=== PATIENT | female | born 1945 | race Caucasian/White ===

== ENCOUNTER 2022-08-24 04:14 | Emergency (ER) | payer OTHER ==
[~2022-08-24] VITALS: Ht 142.2 cm; Wt 56.2 kg
--- NOTE | 2022-08-24 04:24 | NUR ---
Placed in room 7 . Placed on screwhead polisher, blood pressure machine and pulse oximeter. To gown for exam. Side rails up. Report given to ISATU BOOKER.
[2022-08-24 04:26] VITALS: BP_SYST 156
--- NOTE | 2022-08-24 04:33 | NUR ---
ER at bedside examining patient.
--- NOTE | 2022-08-24 04:33 | NUR ---
PT BIB DAUGHTER FROM HOME, ASSISTED TO BED 7 VIA WHEELCHAIR. PT A&Ox4, ABLE TO MAKE NEEDS KNOWN. PT IS A [employer], DAUGHTER AT BEDSIDE TO TRANSLATE. PT C/O SOB SINCE LAST NIGHT. PT DENIES CHEST PAIN, N/V/D, FEVER, AND CHILLS. PT RECENTLY DISCHARGED FROM [facility] ON 08/18/2022. PT HAS HISTORY OF BLOOD CLOTS, STAGE 4 BREAST CANCER, HTN, AND DM. PLUERAL DRAINAGE NOTED ON RIGHT SIDE. SAFETY PRECAUTIONS IN PLACE.
[2022-08-24 05:07] LABS: BASOPHILS # (AUTO) 0.2 K/uL (0.0-0.2); BASOPHILS % (AUTO) 1.1 % (0.0-2.0); EOSINOPHILS % (AUTO) 0.4 % (0.0-4.0); HEMATOCRIT 30.9 % (36-48); HEMOGLOBIN 10.1 g/dL (12.0-16.0); LYMPHOCYTES # (AUTO) 2.2 K/uL (1.0-5.5); LYMPHOCYTES % (AUTO) 16.5 % (20.5-51.5); MEAN CORPUSCULAR HEMOGLOBIN 28 pg (27-31); MEAN CORPUSCULAR HGB CONC 33 % (32-36); MEAN CORPUSCULAR VOLUME 85 fL (79.0-98.0); MONOCYTES # (AUTO) 0.7 K/uL (0.0-1.0); MONOCYTES % (AUTO) 5.3 % (1.7-9.3); NEUTROPHILS # (AUTO) 10.3 K/uL (1.8-7.7); NEUTROPHILS % (AUTO) 76.7 % (40.0-70.0); PLATELET COUNT (AUTO) 360 K/uL (130-430); RED BLOOD CELL COUNT(AUTO) 3.65 MIL/uL (4.2-6.2); RED CELL DISTRIBUTION WIDTH 17.1 % (9.0-15.0); WHITE BLOOD COUNT (AUTO) 13.4 K/uL (4.8-10.8)
[2022-08-24 05:31] LABS: ANION GAP 7 (5-15); CALCIUM 8.1 mg/dL (8.4-11.0); CHLORIDE 99 mmol/L (98-107); CREATININE 0.71 mg/dL (0.55-1.30); GLUCOSE 186 mg/dL (70-99); UREA NITROGEN, BLOOD 10 mg/dL (8-21)
[2022-08-24 05:37] LABS: ALANINE AMINOTRANSFERASE 9 U/L (12-78); ALBUMIN 2.3 g/dL (3.4-4.8); ASPARTATE AMINOTRANSFERASE 12 U/L (10-37); TOTAL BILIRUBIN 0.5 mg/dL (0.0-1.0)
--- NOTE | 2022-08-24 06:16 | NUR ---
Pt resting, awake with daughter at bedside, no s/s of discomfort noted.
[2022-08-24] MEDS ORDERED: LEVO250T73 PO ×2 (07:11→07:22)
[2022-08-24 07:34] VITALS: BP_SYST 125
--- NOTE | 2022-08-24 07:36 | NUR ---
Patient given written and verbal discharge instructions and verbalizes understanding. ER DR SANCHEZ discussed with patient the results and treatment provided. Patient in stable condition. ID arm band removed. Rx of LEVAQUIN given. Patient educated on pain management and to follow up with PMD. Pain Scale 0/10. Opportunity for questions provided and answered. Medication side effect fact sheet provided.
== END 2022-08-24 07:36 | disposition home or self-care (01) ==
LOC: SED 04:14
DX: R06.02 Shortness of breath (principal); J90 Pleural effusion, not elsewhere classified; D72.829 Elevated white blood cell count, unspecified; E87.1 Hypo-osmolality and hyponatremia; E11.9 Type 2 diabetes mellitus without complications; Z79.899 Other long term (current) drug therapy
CPT/HCPCS: 36415; 71045; 80053; 83880; 84484; 85025; 93005; 99285